=== PATIENT | female | born 1935 | race Caucasian/White ===

== ENCOUNTER 2020-12-02 12:12 | Emergency (ER) | payer MEDICARE, OTHER ==
[~2020-12-02] VITALS: Ht 154.9 cm; Wt 75.0 kg
--- NOTE | 2020-12-02 12:53 | NUR ---
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
[2020-12-02] MEDS ORDERED: FLUORESCEIN OPHTHALMIC 1 MG STRIP ONE (13:52)
[2020-12-02] MEDS ORDERED: PROPARACAINE OPHTH 0.5%, 15ML ONE (13:52)
[2020-12-02] MEDS ORDERED: FLUORESCEIN OPHTHALMIC 1 MG STRIP EACHEYE ONE (14:00)
[2020-12-02] MEDS ORDERED: PROPARACAINE OPHTH 0.5%, 15ML EACHEYE ONE (14:00)
[2020-12-02 16:50] VITALS: BP 147/97
== END 2020-12-02 17:46 | disposition home or self-care (01) ==
LOC: ED 14:57
DX: H53.8 Other visual disturbances (principal)
CPT/HCPCS: 70551; 99284